=== PATIENT | male | born 1930 | race Caucasian/White ===

== ENCOUNTER 2018-02-16 08:17 | Emergency (ER) | payer OTHER ==
[~2018-02-16] VITALS: Ht 175.3 cm; Wt 78.8 kg
[~2018-02-16 08:17] MED LIST: B-COMPLEX-VITA1 EACH PO; COMBIGAN O20 DROP/5 RIGHT EYE; DOXYCYCLINE150 MG PO; FLOMAX0.4 M1 PO; GLYCOTROL CAPS1 EACH PO; HYDROCHLOROTH12.5 M3 PO; PERCOCET 5/31 TABLET PO; PHENERGAN12.5 M1 PO; SYSTANE 0.3-0.1 EACH BOTH EYES; TRAMADOL HCL50 MG PO; TRAVATAN 0.004%5 ML BOTH EYES
[2018-02-16 09:00] LABS: HEMOGLOBIN 10.7 G/DL (12.5-16.6); MCH 28.2 PG (29.0-34.0); MCHC 32.4 G/DL (30.0-36.0); MCV 87.1 FL (86-99); PLATELET COUNT 305 K/uL (156-360); RBC DIS.WIDTH-CV 15.9 % (11.8-14.6); RBC DIS.WIDTH-SD 50.7 % (39-53); RED BLOOD COUNT 3.79 M/uL (4.00-5.50); WHITE BLOOD COUNT 9.2 K/uL (4.1-10.2)
[2018-02-16 09:16] LABS: CHLORIDE 107 mEq/L (99-109); POTASSIUM 4.7 mEq/L (3.7-5.4); SODIUM 138 mEq/L (136-147)
[2018-02-16 09:17] LABS: GLUCOSE 93 mg/dL (70-99)
[2018-02-16 09:21] LABS: CREATININE 1.1 mg/dL (0.6-1.3); GFR ESTIMATE (CALCULATED) > 59 mL/min/ (58.99-99999)
[2018-02-16 09:22] LABS: UREA NITROGEN (BUN) 20 mg/dL (9-23)
[2018-02-16 09:24] LABS: APPEARANCE CLEAR ((CLEAR)); BILIRUBIN NEGATIVE; BLOOD SMALL; COLOR YELLOW ((YELLOW)); GLUCOSE (STRIP) NEGATIVE; KETONES NEGATIVE; LEUKOCYTES TRACE; NITRITE NEGATIVE; PROTEIN (STRIP) NEGATIVE; SPECIFIC GRAVITY 1.019 (1.000-1.030); UROBILINOGEN 0.2 MG/DL (0.2-1.0)
[2018-02-16 09:31] LABS: BACTERIA RARE /HPF; EPITHELIAL CELLS RARE /HPF; HYALINE CASTS 0-5 /LPF; MUCUS 1+ /LPF; RED BLOOD CELLS 0-5 /HPF (0-5); WHITE BLOOD CELLS 0-5 /HPF (0-5)
[2018-02-16] MEDS ORDERED: LOTRISONE15 GM TP (10:25)
[2018-02-16 11:09] VITALS: BP 121/70
== END 2018-02-16 11:12 | disposition home or self-care (01) ==
LOC: EME 08:17
PROVIDERS: Nurse Practitioner Family
DX: R21 Rash and other nonspecific skin eruption (principal); L29.9 Pruritus, unspecified; G20 Parkinson's disease; D64.9 Anemia, unspecified; R82.99 Other abnormal findings in urine; Z85.820 Personal history of malignant melanoma of skin; Z85.05 Personal history of malignant neoplasm of liver; Z87.891 Personal history of nicotine dependence
CPT/HCPCS: 80048; 81003; 85027; 87086; 99281; 99285